=== PATIENT | female | born 1940 | race Caucasian/White ===

== ENCOUNTER 2017-08-10 14:42 | Outpatient (CLI) | payer MEDICARE, BC ==
[~2017-08-10] VITALS: Ht 160 cm; Wt 70.0 kg
[~2017-08-10 14:42] MED LIST: ARIMIDEX1 MG PO; ASPIRIN 81M81 MG/TA2 PO; BENADRYL25 M2 PO; CRANBERRY450 MG PO; DITROPAN 5MG TAB5 MG PO; DUO-KAPS1 CAP PO; FLUOROURACIL5% TP; MULTI VITAMINS1 TAB PO; NORCO 325 MG-51 TAB PO; PRINZIDE 25 MG-1 TAB PO; RECLAST5 MG/100 M IV; TUMS500 MG PO; TYLENOL 500MG500 MG PO; VITAMIN D31000 I1 PO; [UNRECOGNIZED DRUG - OTHER] PO; [UNRECOGNIZED DRUG - OTHER] TP
[2017-08-10 16:00] VITALS: BP 153/81; PULSE 60; TEMP 99
== END 2017-08-10 17:00 | disposition home or self-care (01) ==
LOC: EUO 14:42
DX: M81.0 Age-related osteoporosis without current pathological fracture (principal)
CPT/HCPCS: J3489

== ENCOUNTER → 2018-07-18 | Outpatient (CLI) | payer MEDICARE, BC | LOC: MC.RAD 09:40 | DX: Z12.31 Encounter for screening mammogram for malignant neoplasm of breast (principal); C50.411 Malignant neoplasm of upper-outer quadrant of right female breast ==

== ENCOUNTER → 2019-07-21 | Outpatient (CLI) | payer MEDICARE, BC | LOC: MC.RAD 09:33 | DX: Z12.31 Encounter for screening mammogram for malignant neoplasm of breast (principal); Z85.3 Personal history of malignant neoplasm of breast; Z98.890 Other specified postprocedural states; Z98.82 Breast implant status; Z92.3 Personal history of irradiation ==

== ENCOUNTER → 2020-07-22 | Outpatient (CLI) | payer MEDICARE, BC | LOC: MC.RAD 09:47 | DX: Z12.31 Encounter for screening mammogram for malignant neoplasm of breast (principal); Z85.3 Personal history of malignant neoplasm of breast ==

== ENCOUNTER → 2021-07-25 | Outpatient (CLI) | payer MEDICARE, BC | LOC: MC.RAD 10:00 | DX: Z12.31 Encounter for screening mammogram for malignant neoplasm of breast (principal); C50.411 Malignant neoplasm of upper-outer quadrant of right female breast ==

== ENCOUNTER → 2022-07-26 | Outpatient (CLI) | payer MEDICARE, BC | LOC: MC.RAD 09:32 | DX: Z12.31 Encounter for screening mammogram for malignant neoplasm of breast (principal) ==

== ENCOUNTER → 2023-09-03 | Outpatient (CLI) | payer MEDICARE | LOC: MC.RAD 08:45 | DX: Z12.31 Encounter for screening mammogram for malignant neoplasm of breast (principal) ==

== ENCOUNTER → 2024-03-17 | Outpatient (CLI) | payer MEDICARE, BC ==
[2024-03-17 19:00] LABS: COLLECTION METHOD CLEAN CATCH
[2024-03-17 19:10] LABS: PH 6.5 (5.0-8.5); URINE APPEARANCE TURBID (CLEAR/HAZY); URINE BLOOD TRACE (NEGATIVE); URINE COLOR YELLOW (YELLOW); URINE GLUCOSE NEGATIVE (NEGATIVE); URINE KETONE NEGATIVE (NEGATIVE); URINE NITRATE NEGATIVE (NEGATIVE); URINE PROTEIN(semi-quant) NEGATIVE (NEGATIVE); URINE UROBILINOGEN 0.2 E.U/dL (0.2-1.0)
== END ==
LOC: ZCOL.LAB 18:44
PROVIDERS: Family Medicine
DX: N39.0 Urinary tract infection, site not specified (principal)